=== PATIENT | female | born 1975 | race African-American/Black ===

== ENCOUNTER 2023-02-27 21:56 | Emergency (ER) | payer MEDICARE, MEDICAID ==
[~2023-02-27] VITALS: Ht 162.6 cm; Wt 77.0 kg
[2023-02-27 22:00] VITALS: BP 119/66
== END 2023-02-28 00:12 | disposition left against medical advice (07) ==
LOC: ER 21:56
DX: R53.1 Weakness (principal); F41.9 Anxiety disorder, unspecified; E78.00 Pure hypercholesterolemia, unspecified; I10 Essential (primary) hypertension; Z98.890 Other specified postprocedural states
CPT/HCPCS: 99283